=== PATIENT | male | born 1960 | race Caucasian/White ===

== ENCOUNTER 2019-12-23 21:55 | Emergency (ER) | payer MEDICAID ==
[~2019-12-23] VITALS: Ht 170.2 cm; Wt 68.0 kg
--- NOTE | 2019-12-23 21:58 | NUR ---
BIBA BLS TAKEN TO BED 3
[2019-12-23 22:00] VITALS: BP 133/77
[2019-12-23] MEDS ORDERED: NACL 0.9% 500 ML IV SCH (22:19)
[2019-12-23] MEDS ORDERED: VANCOMYCIN 1,000 MG in DEXTROSE 5% 250 ML IV ONE (22:45)
--- NOTE | 2019-12-23 22:47 | NUR ---
PT BIB BLS AMBULANCE AFTER HE CALLED REQUESTING TO BE BROUGHT TO THE HOSPITAL. PT INTOXICATED, SLURRED SPEECH, CONFUSED, UNABLE TO OBTAIN MUCH INFORMATION FOR PT AT THIS TIME. PT DOES HAVE CELLULITIS TO BILATERAL LOWER LEGS WITH +2 PITTING EDEMA. SKIN IS RED, HOT, AND SWOLLEN AND PT SAYS HE HAS PAIN. NO DRAINAGE NOTED TO LEGS. PT AFEBRILE, LUNGS CLEAR, REPIRATIONS EVEN AND UNLABORED. BED IN LOWEST POSITION AND SIDERAIL UP X 1. ALLERGIES - UNKNOWN HX - UNKNOWN
[2019-12-23] MEDS ORDERED: VANCOMYCIN 1,000 MG VIAL ONE (22:50)
[2019-12-23 23:06] LABS: BASOPHILS % (AUTO) 0.6 % (0.0-2.0); EOSINOPHILS # (AUTO) 0.1 K/uL (0-0.4); EOSINOPHILS % (AUTO) 1.9 % (0.0-4.0); HEMATOCRIT 38.8 % (36-52); HEMOGLOBIN 12.7 g/dL (12.0-18.0); LYMPHOCYTES # (AUTO) 1.4 K/uL (2.0-11.5); LYMPHOCYTES % (AUTO) 22.6 % (20.5-51.1); MEAN CORPUSCULAR HEMOGLOBIN 29 pg (27-31); MEAN CORPUSCULAR HGB CONC 33 g/dL (33-37); MEAN CORPUSCULAR VOLUME 89.2 fL (80-94); MONOCYTES # (AUTO) 0.8 K/uL (0.8-1.0); MONOCYTES % (AUTO) 13.4 % (1.7-9.3); NEUTROPHILS # (AUTO) 3.7 K/uL (1.8-7.7); NEUTROPHILS % (AUTO) 61.5 % (42.2-75.2); PLATELET COUNT (AUTO) 218 K/uL (140-450); RED BLOOD CELL COUNT(AUTO) 4.35 MIL/uL (4.20-6.10); RED CELL DISTRIBUTION WIDTH 14.1 % (11.6-13.7)
[2019-12-23 23:19] LABS: ALBUMIN 3.1 g/dL (3.4-5.0); ANION GAP 11.9 (8-16); CARBON DIOXIDE 25.7 mmol/L (21-32); CREATININE 0.8 mg/dL (0.6-1.3); POTASSIUM 3.6 mmol/L (3.5-5.1); TOTAL BILIRUBIN 0.2 mg/dL (0.0-1.0)
--- NOTE | 2019-12-23 23:19 | NUR ---
UA COLLECTED AND TAKEN TO LAB
[2019-12-23 23:26] LABS: APPEARANCE,URINE CLEAR (CLEAR); BILIRUBIN,URINE NEGATIVE (NEGATIVE); BLOOD, URINE NEGATIVE (NEGATIVE); COLOR,URINE YELLOW (YELLOW); LEUKOCYTE ESTERASE ,URINE NEGATIVE (NEGATIVE); NITRITE, URINE NEGATIVE (NEGATIVE); UGLUCOSE NEGATIVE (NEGATIVE)
[2019-12-23 23:34] LABS: ACETAMINOPHEN < 0.5 ug/ml (10-30); SALICYLATE < 2.8 mg/dL (2.8-20.0)
[2019-12-23 23:37] LABS: BARBITURATE, URINE NEGATIVE ng/ml (NEG <=200); BENZODIAZEPINE, URINE NEGATIVE ng/mL (NEG <=200); CANNABINOID, URINE NEGATIVE ng/mL (NEG <=50); COCAINE, URINE NEGATIVE ng/mL (NEG <=300); OPIATE, URINE NEGATIVE ng/mL (NEG <=2000); PHENCYCLIDINE SCREEN,URINE NEGATIVE ng/mL (NEG <=25)
--- NOTE | 2019-12-24 01:30 | NUR ---
PT SLEEPING, REPIRATIONS REGULAR EVEN AND UNLABORED. PT REMAINS ON BEDSIDE MONITOR
--- NOTE | 2019-12-24 01:42 | NUR ---
PT UP AND AMBULATED TO RESTROOM. PT GIVEN SANDWICH AND JUICES.
[2019-12-24 02:51] VITALS: BP 100/67
--- NOTE | 2019-12-24 02:51 | NUR ---
Patient discharged with v/s stable. Written and verbal after care instructions given and explained. Patient alert, oriented and verbalized understanding of instructions. Ambulatory with steady gait. All questions addressed prior to discharge. ID band removed. Patient advised to follow up with PMD. Rx of LASIX AND DOXYCYCLINE given. Patient educated on indication of medication including possible reaction and side effects. Opportunity to ask questions provided and answered.
--- NOTE | 2019-12-24 02:52 | NUR ---
PT WAS PROVIDED WITH A HOMELESS RESOURCE PACKET AND A BAGGED MEAL UPON HIS DISCHARGE
== END 2019-12-24 02:51 | disposition home or self-care (01) ==
LOC: MED 21:55
DX: R41.82 Altered mental status, unspecified (principal); L03.90 Cellulitis, unspecified; R60.9 Edema, unspecified; Z59.0 Homelessness
CPT/HCPCS: 36415; 71045; 80053; 80305; 81003; 83605; 83880; 84484; 85025; 87040; 93005; 96365; 96366; 99285; G0480; G0482; J3370; J7030; Q0092; 96361